=== PATIENT | male | born 1960 | race Caucasian/White ===

== ENCOUNTER 2016-12-12 22:03 | Emergency (ER) | payer MEDICARE, OTHER ==
[2016-12-12 22:14] LABS: Glucose,Whole Blood 175 mg/dL (75-99)
[2016-12-12 22:15] VITALS: RESP 18
--- NOTE | 2016-12-12 22:19 | ED ---
Recheck HPI - General Chief Complaint: Recheck/Abnormal Lab/Rx Stated Complaint: Diabetic Problems Time Seen by Provider: 12/12/16 22:05 Source: patient, RN notes reviewed Mode of arrival: ambulatory Limitations: no limitations - History of Present Illness Initial Comments: This is a 56-year-old male with a history of insulin-dependent diabetes who states for the past several days his blood sugars been very erratic sometimes in the 3 and 400 range sometimes down to 35. He states he has not changed his diet changes dosing he's had no fevers chills nausea vomiting sweats no cough no phlegm production no rhinorrhea no dysuria no polyuria. He's had a new prescription for insulin recently. - Related Data Home Medications Medication Instructions Recorded Confirmed Pravastatin Sodium [Pravachol] 20 mg PO DAILY 01/26/14 12/12/16 Insulin NPH Human Isophane 100 unit SQ QID 01/04/16 12/12/16 [NovoLIN N] Gabapentin [Neurontin] 100 mg PO TID 06/05/16 12/12/16 Hydrocodone/Acetaminophen 1 tab PO TID PRN 06/05/16 12/12/16 [Hydrocodone/Acetaminophen 10-325] Ondansetron [Zofran] 4 mg PO Q12HR PRN 06/05/16 12/12/16 traMADol-ACETAMINOP 37.5-325MG 1 tab PO TID PRN 06/05/16 12/12/16 [Ultracet] Previous Rx's Medication Instructions Recorded Hydrocodone/Acetaminophen [[place] 1 each PO Q6HR PRN #20 tab 06/05/16 5-325] Allergies Allergy/AdvReac Type Severity Reaction Status Date / Time No Known Allergies Allergy Verified 12/12/16 22:15 Review of Systems ROS Statement: Those systems with pertinent positive or pertinent negative responses have been documented in the HPI. ROS Other: All systems not noted in ROS Statement are negative. Past Medical History Past Medical History: Diabetes Mellitus Additional Past Medical History / Comment(s): neuropathy History of Any Multi-Drug Resistant Organisms: None Reported Past Surgical History: Appendectomy, Orthopedic Surgery Additional Past Surgical History / Comment(s): knee Past Psychological History: Anxiety, Depression Smoking Status: Former smoker Past Alcohol Use History: None Reported Past Drug Use History: Marijuana General Exam - General Exam Comments Initial Comments: This is a well-developed well-nourished awake alert oriented times 3 male Limitations: no limitations General appearance: alert, in no apparent distress Head exam: Present: atraumatic, normocephalic, normal inspection Eye exam: Present: normal appearance, PERRL, EOMI. Absent: scleral icterus, conjunctival injection, periorbital swelling ENT exam: Present: normal exam, mucous membranes moist Neck exam: Present: normal inspection. Absent: tenderness, meningismus, lymphadenopathy Respiratory exam: Present: normal lung sounds bilaterally. Absent: respiratory distress, wheezes, rales, rhonchi, stridor Cardiovascular Exam: Present: regular rate, normal rhythm, normal heart sounds. Absent: systolic murmur, diastolic murmur, rubs, gallop, clicks GI/Abdominal exam: Present: soft, normal bowel sounds. Absent: distended, tenderness, guarding, rebound, rigid Extremities exam: Present: normal inspection, full ROM, normal capillary refill. Absent: tenderness, pedal edema, joint swelling, calf tenderness Back exam: Present: normal inspection Neurological exam: Present: alert, oriented X3, CN II-XII intact Psychiatric exam: Present: normal affect, normal mood Skin exam: Present: warm, dry, intact, normal color. Absent: rash Course Vital Signs 12/12/16 22:13 Temperature 97.6 F Pulse Rate 77 Respiratory 18 Rate Blood Pressure 144/80 O2 Sat by Pulse 96 Oximetry Medical Decision Making - Medical Decision Making I did a long discussion with the patient family regarding findings. Patient's demonstrate some evidence of dehydration also of note more information obtained the patient did have decrease oral intake today and didn't work around the house which she normally doesn't do. This probably is contributing to the findings. - Lab Data Result diagrams: 12/12/16 22:30 12/12/16 22:30 Lab Results 12/12/16 12/12/16 12/12/16 Range/Units 22:12 22:30 22:30 WBC (3.8-10.6) k/uL RBC (4.30-5.90) m/uL Hgb (13.0-17.5) gm/dL Hct (39.0-53.0) % MCV (80.0-100.0) fL MCH (25.0-35.0) pg MCHC (31.0-37.0) g/dL RDW (11.5-15.5) % Plt Count (150-450) k/uL Neutrophils % % Lymphocytes % % Monocytes % % Eosinophils % % Basophils % % Neutrophils # (1.3-7.7) k/uL Lymphocytes # (1.0-4.8) k/uL Monocytes # (0-1.0) k/uL Eosinophils # (0-0.7) k/uL Basophils # (0-0.2) k/uL Sodium 139 (137-145) mmol/L Potassium 4.4 (3.5-5.1) mmol/L Chloride 101 (98-107) mmol/L Carbon Dioxide 27 (22-30) mmol/L Anion Gap 11 mmol/L BUN 16 (9-20) mg/dL Creatinine 0.70 (0.66-1.25) mg/dL Est GFR (MDRD) Af Amer >60 (>60 ml/min/1.73 sqM) Est GFR (MDRD) Non-Af >60 (>60 ml/min/1.73 sqM) Glucose 223 H (74-99) mg/dL POC Glucose (mg/dL) 175 H (75-99) mg/dL POC Glu Machine Erector ID Maria C Brown Calcium 9.6 (8.4-10.2) mg/dL Magnesium 2.0 (1.6-2.3) mg/dL Total Bilirubin 1.5 H (0.2-1.3) mg/dL AST 37 (17-59) U/L ALT 46 (21-72) U/L Alkaline Phosphatase 68 (38-126) U/L Total Creatine Kinase 262 H (55-170) U/L CK-MB (CK-2) 2.9 H* (0.0-2.4) ng/mL CK-MB (CK-2) Rel Index 1.1 Troponin I <0.012 (0.000-0.034) ng/mL Total Protein 7.3 (6.3-8.2) g/dL Albumin 4.7 (3.5-5.0) g/dL Amylase 76 (30-110) U/L Lipase 15 L (23-300) U/L Urine Color Urine Appearance (Clear) Urine pH (5.0-8.0) Ur Specific [place] (1.001-1.035) Urine Protein (Negative) Urine Glucose (UA) (Negative) Urine Ketones (Negative) Urine Blood (Negative) Urine Nitrite (Negative) Urine Bilirubin (Negative) Urine Urobilinogen (<2.0) mg/dL Ur Leukocyte Esterase (Negative) Acetone, Qual Negative (Negative) 12/12/16 12/12/16 Range/Units 22:30 22:30 WBC 7.5 (3.8-10.6) k/uL RBC 4.42 (4.30-5.90) m/uL Hgb 15.1 (13.0-17.5) gm/dL Hct 42.1 (39.0-53.0) % MCV 95.3 (80.0-100.0) fL MCH 34.1 (25.0-35.0) pg MCHC 35.8 (31.0-37.0) g/dL RDW 12.7 (11.5-15.5) % Plt Count 247 (150-450) k/uL Neutrophils % 79 % Lymphocytes % 13 % Monocytes % 6 % Eosinophils % 0 % Basophils % 0 % Neutrophils # 5.9 (1.3-7.7) k/uL Lymphocytes # 1.0 (1.0-4.8) k/uL Monocytes # 0.5 (0-1.0) k/uL Eosinophils # 0.0 (0-0.7) k/uL Basophils # 0.0 (0-0.2) k/uL Sodium (137-145) mmol/L Potassium (3.5-5.1) mmol/L Chloride (98-107) mmol/L Carbon Dioxide (22-30) mmol/L Anion Gap mmol/L BUN (9-20) mg/dL Creatinine (0.66-1.25) mg/dL Est GFR (MDRD) Af Amer (>60 ml/min/1.73 sqM) Est GFR (MDRD) Non-Af (>60 ml/min/1.73 sqM) Glucose (74-99) mg/dL POC Glucose (mg/dL) (75-99) mg/dL POC Glu Machine Erector ID Calcium (8.4-10.2) mg/dL Magnesium (1.6-2.3) mg/dL Total Bilirubin (0.2-1.3) mg/dL AST (17-59) U/L ALT (21-72) U/L Alkaline Phosphatase (38-126) U/L Total Creatine Kinase (55-170) U/L CK-MB (CK-2) (0.0-2.4) ng/mL CK-MB (CK-2) Rel Index Troponin I (0.000-0.034) ng/mL Total Protein (6.3-8.2) g/dL Albumin (3.5-5.0) g/dL Amylase (30-110) U/L Lipase (23-300) U/L Urine Color Yellow Urine Appearance Clear (Clear) Urine pH 5.5 (5.0-8.0) Ur Specific [place] 1.024 (1.001-1.035) Urine Protein Trace H (Negative) Urine Glucose (UA) 3+ H (Negative) Urine Ketones 3+ H (Negative) Urine Blood Negative (Negative) Urine Nitrite Negative (Negative) Urine Bilirubin Negative (Negative) Urine Urobilinogen 2.0 (<2.0) mg/dL Ur Leukocyte Esterase Negative (Negative) Acetone, Qual (Negative) - EKG Data -: EKG Interpreted by Id EKG shows normal: sinus rhythm, axis, intervals, QRS complexes, ST-T waves (EKG shows normal sinus rhythm of 73. We'll 180 QRS duration 86 daily since QTC of 42/442 this is a normal-appearing EKG. Some artifact is present) Rate: normal - Radiology Data Radiology results: report reviewed (I did review the x-rays and report no acute findings.), image reviewed Disposition Clinical Impression: Hyperglycemia, Dehydration Disposition: HOME SELF-CARE Condition: Good Instructions: Diabetic Hyperglycemia (ED) Referrals: Kriss Larson MD [Primary Care Provider] - 1-2 days
[2016-12-12 22:43] LABS: Basophils % (A) 0 %; CH 34.6; CHCM 36.4; Eosinophils % (A) 0 %; HCT 42.1 % (39.0-53.0); HGB 15.1 gm/dL (13.0-17.5); Luc # (Auto) 0.12; Luc % (Auto) 2; Lymphocytes % (A) 13 %; MCH 34.1 pg (25.0-35.0); MCHC 35.8 g/dL (31.0-37.0); MCV 95.3 fL (80.0-100.0); Mean Platelet Volume 7.8; Monocytes # (A) 0.5 k/uL (0-1.0); Monocytes % (A) 6 %; Neutrophils # (A) 5.9 k/uL (1.3-7.7); Neutrophils % (A) 79 %; RBC 4.42 m/uL (4.30-5.90); RDW 12.7 % (11.5-15.5); WBC 7.5 k/uL (3.8-10.6); WBC (Perox) 7.58
[2016-12-12 22:44] LABS: Appearance,Urine Clear (Clear); Bilirubin,Urine Negative (Negative); Glucose,Urine (UA) 3+ (Negative); Leukocyte Esterase,Urine Negative (Negative); Nitrite,Urine Negative (Negative); PH, Urine 5.5 (5.0-8.0); Protein,Urine Trace (Negative); Specific Gravity,Urine 1.024 (1.001-1.035); UA Billing (MACRO vs. MICRO) CHEM
[2016-12-12 22:56] LABS: ALT 46 U/L (21-72); AST 37 U/L (17-59); Alkaline Phosphatase 68 U/L (38-126); Amylase 76 U/L (30-110); Anion Gap 11 mmol/L; Blood Urea Nitrogen 16 mg/dL (9-20); Calcium 9.6 mg/dL (8.4-10.2); Carbon Dioxide 27 mmol/L (22-30); Chloride 101 mmol/L (98-107); Glucose 223 mg/dL (74-99); Ketones,Urine 3+ (Negative); Non-African American GFR(MDRD) >60 (>60 ml/min/1.73 sqM); Potassium 4.4 mmol/L (3.5-5.1); Sodium 139 mmol/L (137-145); Total Bilirubin 1.5 mg/dL (0.2-1.3); Total Protein 7.3 g/dL (6.3-8.2)
[2016-12-12 23:02] LABS: Creatine Kinase 262 U/L (55-170)
--- NOTE | 2016-12-12 23:08 | XR ---
EXAM: XR Chest, 2 Views. CLINICAL HISTORY: Reason: cough TECHNIQUE: Frontal and lateral views of the chest. COMPARISON: No relevant prior studies available. FINDINGS: Lungs: Unremarkable. No consolidation. Pleural spaces: Unremarkable. No pneumothorax. Heart: Unremarkable. No cardiomegaly. Mediastinum: Unremarkable. Bones: Unremarkable. No acute fracture. IMPRESSION: Normal chest.
[2016-12-12 23:15] LABS: Troponin I <0.012 ng/mL (0.000-0.034)
[2016-12-12 23:22] LABS: Creatine Kinase MB 2.9 ng/mL (0.0-2.4)
[2016-12-13] MEDS ORDERED: SODIUM CHLORIDE 0.9% 1,000 ML IV STA (00:01)
[2016-12-13 00:59] VITALS: BP 109/52; PULSE 66; TEMP 97.9
== END 2016-12-13 00:58 | disposition home or self-care (01) ==
LOC: EC 22:03
DX: E11.65 Type 2 diabetes mellitus with hyperglycemia (principal); E86.0 Dehydration; E11.40 Type 2 diabetes mellitus with diabetic neuropathy, unspecified; Z87.891 Personal history of nicotine dependence; Z79.4 Long term (current) use of insulin; Z79.899 Other long term (current) drug therapy
CPT/HCPCS: 36415; 71020; 80053; 81003; 82009; 82150; 82550; 82553; 83690; 83735; 84484; 85025; 93005; 99285

== ENCOUNTER 2018-05-03 11:36 | Emergency (ER) | payer MEDICARE, OTHER ==
[2018-05-03 11:47] VITALS: RESP 18
[2018-05-03 11:48] LABS: Glucose,Whole Blood 466 mg/dL (75-99)
[2018-05-03 13:51] LABS: Glucose,Whole Blood 462 mg/dL (75-99)
[2018-05-03] MEDS ORDERED: SODIUM CHLORIDE 0.9% 1,000 ML IV STA ×2 (14:17)
[2018-05-03] MEDS ORDERED: MORPHINE SULFATE 4 MG/ML SYRINGE IV STA (14:17)
[2018-05-03] MEDS ORDERED: KETOROLAC 30 MG/ML 1 ML VIAL IVP STA (14:17)
[2018-05-03] MEDS ORDERED: SODIUM CHLORIDE 0.9% 500 ML 500 ML IV STA (14:17)
--- NOTE | 2018-05-03 14:24 | ED ---
Back Pain HPI - General Chief Complaint: Recheck/Abnormal Lab/Rx Stated Complaint: back pain Time Seen by Provider: 05/03/18 13:34 Source: patient Limitations: no limitations - Related Data Home Medications Medication Instructions Recorded Confirmed Aspirin EC [Ecotrin Low Dose] 81 mg PO DAILY 05/03/18 05/03/18 HYDROcodone/APAP 10-325MG [[place] 1 tab PO QID PRN 05/03/18 05/03/18 10-325] Insulin NPH Human Isophane 5 - 15 unit SQ TID 05/03/18 05/03/18 [NovoLIN N] Lisinopril [Zestril] 2.5 mg PO DAILY 05/03/18 05/03/18 Allergies Allergy/AdvReac Type Severity Reaction Status Date / Time No Known Allergies Allergy Verified 05/03/18 13:57 Review of Systems ROS Statement: Those systems with pertinent positive or pertinent negative responses have been documented in the HPI. ROS Other: All systems not noted in ROS Statement are negative. Past Medical History Past Medical History: Diabetes Mellitus Additional Past Medical History / Comment(s): neuropathy History of Any Multi-Drug Resistant Organisms: None Reported Past Surgical History: Appendectomy, Orthopedic Surgery Additional Past Surgical History / Comment(s): knee Past Psychological History: Anxiety, Depression Smoking Status: Former smoker Past Alcohol Use History: None Reported Past Drug Use History: Marijuana General Exam - General Exam Comments Initial Comments: no bony tenderness LS spine, no neurological deficit Limitations: no limitations General appearance: alert, in no apparent distress Head exam: Present: atraumatic, normocephalic, normal inspection Eye exam: Present: normal appearance, PERRL, EOMI. Absent: scleral icterus, conjunctival injection, periorbital swelling ENT exam: Present: normal exam, mucous membranes moist Neck exam: Present: normal inspection. Absent: tenderness, meningismus, lymphadenopathy Respiratory exam: Present: normal lung sounds bilaterally. Absent: respiratory distress, wheezes, rales, rhonchi, stridor Cardiovascular Exam: Present: regular rate, normal rhythm, normal heart sounds. Absent: systolic murmur, diastolic murmur, rubs, gallop, clicks GI/Abdominal exam: Present: soft, normal bowel sounds. Absent: distended, tenderness, guarding, rebound, rigid Extremities exam: Present: normal inspection, full ROM, normal capillary refill. Absent: tenderness, pedal edema, joint swelling, calf tenderness Back exam: Present: normal inspection Neurological exam: Present: alert, oriented X3, CN II-XII intact Psychiatric exam: Present: normal affect, normal mood Skin exam: Present: warm, dry, intact, normal color. Absent: rash Course Vital Signs 05/03/18 05/03/18 05/03/18 11:40 15:10 15:11 Temperature 97.5 F L Pulse Rate 76 Respiratory 18 Rate Blood Pressure 135/80 124/73 111/75 O2 Sat by Pulse 100 100 99 Oximetry 05/03/18 05/03/18 05/03/18 15:12 15:13 15:14 Temperature Pulse Rate 65 Respiratory 18 Rate Blood Pressure 111/75 111/75 111/75 O2 Sat by Pulse 98 99 99 Oximetry - Reevaluation(s) Reevaluation #1: 05/03/18 15:32 Medical records thoroughly reviewed Reevaluation #2: 05/03/18 15:32 Patient significant pain control currently, blood sugar is significantly improved prior to discharge Reevaluation #3: 05/03/18 15:32 Patient is able to ambulate without difficulty and no neurological deficit Medical Decision Making - Medical Decision Making 57 male the ER for evaluation of acute on chronic low back pain, elevated blood sugar, patient blood sugars rapidly improved here in the emergency room, encouraged to furthermore tighten his diabetic diet control, patient will follow -up with primary care and pain control regarding his chronic back pain. - Lab Data Result diagrams: 05/03/18 14:42 05/03/18 14:42 Lab Results 05/03/18 05/03/18 05/03/18 Range/Units 11:46 13:50 14:42 WBC (3.8-10.6) k/uL RBC (4.30-5.90) m/uL Hgb (13.0-17.5) gm/dL Hct (39.0-53.0) % MCV (80.0-100.0) fL MCH (25.0-35.0) pg MCHC (31.0-37.0) g/dL RDW (11.5-15.5) % Plt Count (150-450) k/uL Neutrophils % % Lymphocytes % % Monocytes % % Eosinophils % % Basophils % % Neutrophils # (1.3-7.7) k/uL Lymphocytes # (1.0-4.8) k/uL Monocytes # (0-1.0) k/uL Eosinophils # (0-0.7) k/uL Basophils # (0-0.2) k/uL Sodium 135 L (137-145) mmol/L Potassium 5.3 H (3.5-5.1) mmol/L Chloride 97 L (98-107) mmol/L Carbon Dioxide 26 (22-30) mmol/L Anion Gap 12 mmol/L BUN 19 (9-20) mg/dL Creatinine 0.73 (0.66-1.25) mg/dL Est GFR (CKD-EPI)AfAm >90 (>60 ml/min/1.73 sqM) Est GFR (CKD-EPI)NonAf >90 (>60 ml/min/1.73 sqM) Glucose 464 H (74-99) mg/dL POC Glucose (mg/dL) 466 H 462 H (75-99) mg/dL POC Glu Therapeutic Strategy Lead ID Berny, Cherylson Garcia Kay Calcium 9.6 (8.4-10.2) mg/dL Total Bilirubin 1.9 H (0.2-1.3) mg/dL AST 37 (17-59) U/L ALT 47 (21-72) U/L Alkaline Phosphatase 145 H (38-126) U/L Total Protein 7.6 (6.3-8.2) g/dL Albumin 4.6 (3.5-5.0) g/dL Amylase 52 (30-110) U/L Lipase 30 (23-300) U/L Acetone, Qual Negative (Negative) 05/03/18 Range/Units 14:42 WBC 6.2 (3.8-10.6) k/uL RBC 4.63 (4.30-5.90) m/uL Hgb 15.8 (13.0-17.5) gm/dL Hct 46.0 (39.0-53.0) % MCV 99.3 (80.0-100.0) fL MCH 34.2 (25.0-35.0) pg MCHC 34.4 (31.0-37.0) g/dL RDW 12.8 (11.5-15.5) % Plt Count 233 (150-450) k/uL Neutrophils % 63 % Lymphocytes % 28 % Monocytes % 6 % Eosinophils % 1 % Basophils % 1 % Neutrophils # 3.9 (1.3-7.7) k/uL Lymphocytes # 1.7 (1.0-4.8) k/uL Monocytes # 0.3 (0-1.0) k/uL Eosinophils # 0.1 (0-0.7) k/uL Basophils # 0.0 (0-0.2) k/uL Sodium (137-145) mmol/L Potassium (3.5-5.1) mmol/L Chloride (98-107) mmol/L Carbon Dioxide (22-30) mmol/L Anion Gap mmol/L BUN (9-20) mg/dL Creatinine (0.66-1.25) mg/dL Est GFR (CKD-EPI)AfAm (>60 ml/min/1.73 sqM) Est GFR (CKD-EPI)NonAf (>60 ml/min/1.73 sqM) Glucose (74-99) mg/dL POC Glucose (mg/dL) (75-99) mg/dL POC Glu Therapeutic Strategy Lead ID Calcium (8.4-10.2) mg/dL Total Bilirubin (0.2-1.3) mg/dL AST (17-59) U/L ALT (21-72) U/L Alkaline Phosphatase (38-126) U/L Total Protein (6.3-8.2) g/dL Albumin (3.5-5.0) g/dL Amylase (30-110) U/L Lipase (23-300) U/L Acetone, Qual (Negative) - Radiology Data Radiology results: report reviewed (X-ray chest and pelvis lumbar sacral spine is negative for injury disease), image reviewed Disposition Clinical Impression: Back pain, Hyperglycemia Disposition: HOME SELF-CARE Condition: Good Instructions: Chronic Back Pain (ED), Acute Low Back Pain (ED), Diabetic Hyperglycemia (ED) Is patient prescribed a controlled substance at d/c from ED?: No Referrals: Kriss Larson MD [Primary Care Provider] - 1-2 days
[2018-05-03 15:05] LABS: Basophils % (A) 1 %; Eosinophils # (A) 0.1 k/uL (0-0.7); Eosinophils % (A) 1 %; HGB 15.8 gm/dL (13.0-17.5); Lymphocytes # (A) 1.7 k/uL (1.0-4.8); Lymphocytes % (A) 28 %; MCH 34.2 pg (25.0-35.0); MCHC 34.4 g/dL (31.0-37.0); MCV 99.3 fL (80.0-100.0); Mean Platelet Volume 7.7; Monocytes # (A) 0.3 k/uL (0-1.0); Monocytes % (A) 6 %; Neutrophils # (A) 3.9 k/uL (1.3-7.7); Neutrophils % (A) 63 %; Platelet Count 233 k/uL (150-450); RBC 4.63 m/uL (4.30-5.90); RDW 12.8 % (11.5-15.5); WBC 6.2 k/uL (3.8-10.6)
--- NOTE | 2018-05-03 15:13 | XR ---
EXAMINATION TYPE: XR lumbar spine 2 or 3V DATE OF EXAM: 05/03/2018 CLINICAL HISTORY: Chronic back pain TECHNIQUE: Frontal and lateral images of the lumbar spine are obtained. COMPARISON: None FINDINGS: There are 5 lumbar type vertebral bodies identified. Vertebral body heights are maintained of the lumbar spine. There is slight retrolisthesis of L2 on L3 and L3 on L4 with grade 1 anterolist hesis of L4 on L5. Multilevel malalignment is likely on degenerative basis with multilevel facet hype rtrophy. Small anterior osteophytes are seen at L5-S1 and to a lesser degree throughout the remainder the lumbar spine. The overlying soft tissue appears unremarkable. IMPRESSION: No acute fracture is seen in the lumbar spine. Multilevel malalignment is likely on the basis of degenerative change due to hypertrophic facet arthropathy.
--- NOTE | 2018-05-03 15:14 | XR ---
EXAMINATION TYPE: XR abdomen acute w cxr DATE OF EXAM: 05/03/2018 COMPARISON: NONE HISTORY: Chest pain and abdominal pain TECHNIQUE: Single view chest radiograph and 2 view abdominal radiographs are obtained. FINDINGS: Chest: No focal consolidation, pleural effusion or pneumothorax. Cardiomediastinal silhouette is with in normal limits. Osseous structures appear intact. ABDOMEN: Multiple phleboliths and atherosclerosis are seen within the left hemipelvis and inguinal re gions. Multilevel degenerative change of the lumbar spine is described on the lumbar radiographs of t he same date. There is mild bilateral femoral acetabular arthropathy. No dilated large or small bowel . IMPRESSION: Nonobstructive bowel gas pattern and no acute cardiopulmonary process.
[2018-05-03 15:18] LABS: ALT 47 U/L (21-72); AST 37 U/L (17-59); Albumin 4.6 g/dL (3.5-5.0); Alkaline Phosphatase 145 U/L (38-126); Amylase 52 U/L (30-110); Anion Gap 12 mmol/L; Blood Urea Nitrogen 19 mg/dL (9-20); Calcium 9.6 mg/dL (8.4-10.2); Carbon Dioxide 26 mmol/L (22-30); Chloride 97 mmol/L (98-107); Glucose 464 mg/dL (74-99); Lipase 30 U/L (23-300); Potassium 5.3 mmol/L (3.5-5.1); Sodium 135 mmol/L (137-145); Total Bilirubin 1.9 mg/dL (0.2-1.3); Total Protein 7.6 g/dL (6.3-8.2)
[2018-05-03] MEDS ORDERED: INSULIN REGULAR 100 UNIT/ML VIAL SQ ONE (15:30)
[2018-05-03] MEDS ORDERED: INSULIN REGULAR 100 UNIT/ML VIAL IV ONE (15:30)
[2018-05-03 16:04] VITALS: BP 133/75; PULSE 68; TEMP 97.6
== END 2018-05-03 16:04 | disposition home or self-care (01) ==
LOC: EC 11:36
DX: M54.9 Dorsalgia, unspecified (principal); E11.65 Type 2 diabetes mellitus with hyperglycemia; G89.29 Other chronic pain; E11.40 Type 2 diabetes mellitus with diabetic neuropathy, unspecified; Z79.4 Long term (current) use of insulin; Z79.82 Long term (current) use of aspirin; Z79.899 Other long term (current) drug therapy; Z87.891 Personal history of nicotine dependence
CPT/HCPCS: 36415; 80053; 82150; 82009; 83690; 85025; 74022; 72100; 99283; 96374; 96375; 96361 ×2; J2270; J1885

== ENCOUNTER 2019-10-02 | Emergency (ER) | payer OTHER, MEDICARE | END 2019-10-02 16:17 | disposition home or self-care (01) | CPT/HCPCS: 36415; 93005; 80053; 84484; 85025; 71046; 99285; 96374; J1885 ==

== ENCOUNTER 2020-03-27 18:56 | Emergency (ER) | payer OTHER, MEDICARE ==
[2020-03-27 19:09] VITALS: PULSE 74; RESP 20; TEMP 97.6
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
[2020-03-27 19:47] LABS: Basophils % (A) 1 %; Eosinophils # (A) 0.1 k/uL (0-0.7); Eosinophils % (A) 1 %; HCT 41.5 % (39.0-53.0); HGB 13.6 gm/dL (13.0-17.5); Lymphocytes % (A) 28 %; MCH 32.6 pg (25.0-35.0); MCHC 32.8 g/dL (31.0-37.0); MCV 99.3 fL (80.0-100.0); Mean Platelet Volume 7.7; Monocytes # (A) 0.4 k/uL (0-1.0); Monocytes % (A) 5 %; Neutrophils # (A) 4.5 k/uL (1.3-7.7); Neutrophils % (A) 63 %; Platelet Count 211 k/uL (150-450); RBC 4.18 m/uL (4.30-5.90); RDW 12.6 % (11.5-15.5); WBC 7.3 k/uL (3.8-10.6)
[2020-03-27 19:56] LABS: ALT 27 U/L (4-49); AST 31 U/L (17-59); African American GFR (CKD) >90 (>60 ml/min/1.73 sqM); Albumin 3.9 g/dL (3.5-5.0); Alcohol <10 mg/dL; Alkaline Phosphatase 89 U/L (38-126); Anion Gap 7 mmol/L; Blood Urea Nitrogen 12 mg/dL (9-20); Calcium 9.2 mg/dL (8.4-10.2); Carbon Dioxide 25 mmol/L (22-30); Chloride 102 mmol/L (98-107); Creatine Kinase 152 U/L (55-170); Glucose 186 mg/dL (74-99); Non-African American GFR(CKD) >90 (>60 ml/min/1.73 sqM); Potassium 3.7 mmol/L (3.5-5.1); Sodium 134 mmol/L (137-145); Total Bilirubin 0.7 mg/dL (0.2-1.3); Total Protein 6.1 g/dL (6.3-8.2)
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
[2020-03-27 20:05] LABS: INR 0.9 (<1.2); Partial Thromboplastin Time 24.8 sec (22.0-30.0); Prothrombin Time 9.9 sec (9.0-12.0)
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
[2020-03-27 20:52] VITALS: BP 131/76
[2020-03-27] MEDS ORDERED: KETOROLAC 15 MG/ML 1 ML VIAL IVP STA (21:00)
[2020-03-27 21:15] LABS: Appearance,Urine Clear (Clear); Bilirubin,Urine Negative (Negative); Blood,Urine Negative (Negative); Color,Urine Colorless; Glucose,Urine (UA) 1+ (Negative); Ketones,Urine Negative (Negative); Leukocyte Esterase,Urine Negative (Negative); Nitrite,Urine Negative (Negative); PH, Urine 6.5 (5.0-8.0); Protein,Urine Negative (Negative); Specific Gravity,Urine 1.005 (1.001-1.035); Urobilinogen,Urine <2.0 mg/dL (<2.0)
[2020-03-27 21:26] LABS: Amphetamine Screen,Urine Not Detected (NotDetected); Barbiturate Screen,Urine Not Detected (NotDetected); Benzodiazepines Screen,Urine Not Detected (NotDetected); Cocaine Screen,Urine Not Detected (NotDetected); Methadone Screen, Urine Not Detected (NotDetected); Opiate Screen,Urine Detected (NotDetected); Oxycodone Screen, Urine Not Detected (NotDetected); Phencyclidine Screen,Urine Not Detected (NotDetected); Tricyclic Antidepressant,Urine Not Detected (NotDetected); Urn Cannabinoid Scrn Detected (NotDetected)
== END 2020-03-27 21:31 | disposition home or self-care (01) ==
LOC: EC 18:56
DX: S63.502A Unspecified sprain of left wrist, initial encounter (principal); S60.512A Abrasion of left hand, initial encounter; S60.511A Abrasion of right hand, initial encounter; S50.812A Abrasion of left forearm, initial encounter; S50.811A Abrasion of right forearm, initial encounter; S80.812A Abrasion, left lower leg, initial encounter; E11.40 Type 2 diabetes mellitus with diabetic neuropathy, unspecified; F17.200 Nicotine dependence, unspecified, uncomplicated; Z79.82 Long term (current) use of aspirin; Z79.899 Other long term (current) drug therapy; Z79.4 Long term (current) use of insulin; Z98.890 Other specified postprocedural states; V23.4XXA Motorcycle driver injured in collision with car, pick-up truck or van in traffic accident, initial encounter; Y92.410 Unspecified street and highway as the place of occurrence of the external cause
CPT/HCPCS: 36415; 93005; 86900; 86901; 80053; 82550; 84484; 85025; 85610; 85730; 86850; 81003; 80306; 80320; 73110; 73130; 72170; 73590; 71045; 72125; 70450; 71260; 74177; 99285; 96374; J1885; Q9967

== ENCOUNTER 2020-10-17 15:47 | Emergency (ER) | payer MEDICARE, OTHER ==
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
[2020-10-17 17:40] LABS: Glucose,Whole Blood 268 mg/dL (75-99)
--- NOTE | 2020-10-17 18:10 | XR ---
PROCEDURE: XR hand complete RT - 3V DATE AND TIME: 10/17/2020 5:50 PM CLINICAL INDICATION: PHH; hand pain TECHNIQUE: Department protocol COMPARISON: 03/27/2020 FINDINGS: There is no fracture or malalignment. There are multifocal mild and moderate degenerative joint changes, but no bony erosions. Prominent multifocal arterial calcifications are redemonstrated, consistent with atherosclerosis. The soft tissues are otherwise unremarkable. IMPRESSION: 1. Widespread atherosclerotic intimal calcifications. 2. Degenerative joint changes.
[2020-10-17 22:56] VITALS: BP 130/55; PULSE 78; RESP 16; TEMP 98.3
== END 2020-10-17 21:37 | disposition home or self-care (01) ==
LOC: EC 15:47
DX: M79.641 Pain in right hand (principal); F41.9 Anxiety disorder, unspecified; F32.9 Major depressive disorder, single episode, unspecified; F12.90 Cannabis use, unspecified, uncomplicated; E11.40 Type 2 diabetes mellitus with diabetic neuropathy, unspecified
CPT/HCPCS: 36415; 99283

== ENCOUNTER → 2024-03-06 | Outpatient (CLI) | payer MEDICARE | END | disposition home or self-care (01) | LOC: LABPRL 08:50 | PROVIDERS: ATTEND Nurse Practitioner Family | CPT/HCPCS: 87070; 87075; 87205 ==

== ENCOUNTER 2024-03-13 21:14 | Emergency (ER) | payer MEDICARE, OTHER ==
[2024-03-13 21:32] VITALS: RESP 16; TEMP 98.1
[2024-03-13] MEDS: KETOROLAC 15 MG/ML 1 ML VIAL IM STA (23:11)
--- NOTE | 2024-03-14 00:07 | ED ---
General Adult HPI - General Chief complaint: Wound/Laceration Stated complaint: Left shoulder wound Time Seen by Provider: 03/13/24 22:16 Source: patient Mode of arrival: ambulatory Limitations: no limitations - History of Present Illness Initial comments: 63-year-old male presenting for evaluation of his chronic left shoulder wound. Patient had surgery back in July 2023. He has also had previous surgeries to the left shoulder prior to this. He has had a wound since July. He was at wound care today and he states that they were "flushing it out". He admits to pain with range of motion. No fevers. No joint swelling. No numbness tingling or weakness. - Related Data Home Medications Medication Instructions Recorded Confirmed Aspirin EC [Ecotrin Low Dose] 81 mg PO DAILY 05/03/18 10/02/19 HYDROcodone/APAP 10-325MG [Tamms 1 tab PO QID PRN 05/03/18 10/02/19 10-325] lisinopriL [Zestril] 2.5 mg PO DAILY 05/03/18 10/02/19 Insulin Regular, Human [NovoLIN R] See Protocol SQ AC-TID 10/02/19 10/02/19 Meloxicam 15 mg PO DAILY PRN 10/02/19 10/02/19 Pravastatin Sodium [Pravachol] 20 mg PO HS 10/02/19 10/02/19 Previous Rx's Medication Instructions Recorded Ibuprofen 800 mg PO Q6HR PRN #20 tablet 03/27/20 Orphenadrine [Norflex] 100 mg PO Q12H #7 tablet.er 03/27/20 Cephalexin [Keflex] 500 mg PO Q6HR 7 Days #28 cap 03/14/24 Sulfamethox-Tmp 800-160Mg [Bactrim 1 tab PO Q12HR 7 Days #14 tab 03/14/24 DS 800-160 mg] Allergies Allergy/AdvReac Type Severity Reaction Status Date / Time No Known Allergies Allergy Verified 03/13/24 21:32 Review of Systems ROS Statement: Those systems with pertinent positive or pertinent negative responses have been documented in the HPI. ROS Other: All systems not noted in ROS Statement are negative. Past Medical History Past Medical History: Diabetes Mellitus, Hypertension Additional Past Medical History / Comment(s): neuropathy History of Any Multi-Drug Resistant Organisms: None Reported Past Surgical History: Appendectomy, Orthopedic Surgery Additional Past Surgical History / Comment(s): knee, L shoulder 07/2023 Past Psychological History: Anxiety, Depression Smoking Status: Current some day smoker Past Alcohol Use History: None Reported Past Drug Use History: Marijuana General Exam Limitations: no limitations General appearance: alert, in no apparent distress Head exam: Present: atraumatic, normocephalic Eye exam: Present: normal appearance, EOMI Neck exam: Present: normal inspection. Absent: meningismus Respiratory exam: Absent: respiratory distress Cardiovascular Exam: Present: regular rate Left Shoulder Exam: Present: tenderness (Directly over his wound). Absent: swelling Vascular: Absent: vascular compromise Neurological exam: Present: alert, oriented X3 Psychiatric exam: Present: normal affect, normal mood Skin exam: Present: other (He does have a slight ulceration seen on the left shoulder) Course Vital Signs 03/13/24 03/14/24 21:26 01:10 Temperature 98.1 F Pulse Rate 84 72 Respiratory 16 16 Rate Blood Pressure 107/74 108/69 O2 Sat by Pulse 97 97 Oximetry Medical Decision Making - Medical Decision Making Was pt. sent in by a medical professional or institution (, PA, SPEECH PATHOLOGIST ASSISTANT, urgent care, hospital, or usp...) When possible be specific @ -No Did you speak to anyone other than the patient for history (EMS, parent, family, police, friend...)? What history was obtained from this source @ -No Did you review nursing and triage notes (agree or disagree)? Why? @ -I reviewed and agree with nursing and triage notes Were old charts reviewed (outside hosp., previous admission, EMS record, old EKG, old radiological studies, urgent care reports/EKG's, usp records)? Report findings @ -No old charts were reviewed Differential Diagnosis (chest pain, altered mental status, abdominal pain women, abdominal pain men, vaginal bleeding, weakness, fever, dyspnea, syncope, headache, dizziness, GI bleed, back pain, seizure, CVA, palpatations, mental health, musculoskeletal)? @ -Differential includes cellulitis, abscess, ulceration, this is not an all- inclusive EKG interpreted by me (3pts min.). @ -As above X-rays interpreted by me (1pt min.). @ -X-ray shows widening of the AC joint space measuring 1.4 cm correlate for history of David procedure. Subcutaneous air in the left shoulder, correlate for recent surgery. CT interpreted by me (1pt min.). @ -None done U/S interpreted by me (1pt. min.). @ -None done What testing was considered but not performed or refused? (CT, X-rays, U/S, labs)? Why? @ -None What meds were considered but not given or refused? Why? @ -None Did you discuss the management of the patient with other professionals (luis antonio martinez i.eSelena Dee, PA, SPEECH PATHOLOGIST ASSISTANT, lab, RT, psych nurse, social services assistant, accounting intern, teacher, airfield engineer officer, piano case maker)? Give summary @ -No Was smoking cessation discussed for >3mins.? @ -No Was critical care preformed (if so, how long)? @ -No Were there social determinants of health that impacted care today? How? (Homelessness, low income, unemployed, alcoholism, drug addiction, transportation, low edu. Level, literacy, decrease access to med. care, intermediate, rehab)? @ -No Was there de-escalation of care discussed even if they declined (Discuss DNR or withdrawal of care, Hospice)? DNR status @ -No What co-morbidities impacted this encounter? (DM, HTN, Smoking, COPD, CAD, Cancer, CVA, ARF, Chemo, Hep., AIDS, mental health diagnosis, sleep apnea, morbid obesity)? @ -None Was patient admitted / discharged? Hospital course, mention meds given and route, prescriptions, significant lab abnormalities, going to OR and other pertinent info. @ -63-year-old male presenting with chronic wound to the left shoulder. Patient has had recurrent issues with this since his surgery back in July. He saw wound care today. I removed a small piece of packing. Small amount of pus was expressed and culture was sent. There is no joint swelling or erythema, erythema is limited to the immediate area surrounding the wound. X-ray shows AC joint and subcu air that is consistent with the appearance of the wound. No evidence of septic arthritis. Patient will be treated with Keflex and Bactrim and instructed to follow-up with his credit specialist and orthopedist. Discharged home. Follow-up with PCP. Report back to ER with any new or worsening symptoms. Discussed return parameters and answered all questions. Patient conveyed verbal understanding and agreed to the plan. I discussed this case in detail with my attending Dr. Hunt Undiagnosed new problem with uncertain prognosis? @ -No Drug Therapy requiring intensive monitoring for toxicity (Heparin, Nitro, Insulin, Cardizem)? @ -No Were any procedures done? @ -No Diagnosis/symptom? @ -Cellulitis Acute, or Chronic, or Acute on Chronic? @ -Acute Uncomplicated (without systemic symptoms) or Complicated (systemic symptoms)? @ -Uncomplicated Side effects of treatment? @ -No Exacerbation, Progression, or Severe Exacerbation? @ -No Poses a threat to life or bodily function? How? (Chest pain, [place], [place], pneumonia, PE, COPD, DKA, ARF, appy, cholecystitis, CVA, Diverticulitis, Homicidal, Suicidal, threat to staff... and all critical care pts) @ -Low likelihood at this time Disposition Clinical Impression: Cellulitis Disposition: HOME SELF-CARE Condition: Good Instructions (If sedation given, give patient instructions): Cellulitis (ED) Additional Instructions: Follow-up with your PCP and credit specialist. Report back to ER with any new or worsening symptoms. Prescriptions: Sulfamethox-Tmp 800-160Mg [Bactrim DS 800-160 mg] 1 tab PO Q12HR 7 Days #14 tab Cephalexin [Keflex] 500 mg PO Q6HR 7 Days #28 cap Is patient prescribed a controlled substance at d/c from ED?: No Referrals: None,Stated [Primary Care Provider] - 1-2 days Esdras Sims MD [STAFF PHYSICIAN] - 1-2 days Time of Disposition: 00:42
--- NOTE | 2024-03-14 01:03 | XR ---
EXAM: XR Left Shoulder Complete, 2 or More Views CLINICAL HISTORY: ITS.REASON XR Reason: pain TECHNIQUE: Two or more views of the left shoulder. COMPARISON: No relevant prior studies available. FINDINGS: Bones/joints: Suture anchors in the humeral head. Widening of the acromioclavicular joint space, measuring 1.4 cm, correlate for history of David procedure. Subcutaneous air in the LEFT shoulder, correlate for recent surgery. No acute fracture. No dislocation. Soft tissues: See above. IMPRESSION: Widening of the acromioclavicular joint space, measuring 1.4 cm, correlate for history of David procedure. Subcutaneous air in the LEFT shoulder, correlate for recent surgery.
[2024-03-14 01:17] VITALS: BP 108/69; PULSE 72
== END 2024-03-14 01:10 | disposition home or self-care (01) ==
LOC: EC 21:14
CPT/HCPCS: 87070; 87205; 96372; 99283

== ENCOUNTER 2024-09-11 06:56 | Emergency (ER) | payer MEDICARE ==
[2024-09-11 07:05] VITALS: TEMP 97.3
[2024-09-11 07:34] LABS: Glucose,Whole Blood 194 mg/dL (70-110)
--- NOTE | 2024-09-11 07:39 | ED ---
Recheck HPI - General Chief Complaint: Recheck/Abnormal Lab/Rx Stated Complaint: Wrong Meds Time Seen by Provider: 09/11/24 07:34 Source: patient, RN notes reviewed Mode of arrival: wheelchair Limitations: no limitations - History of Present Illness Initial Comments: Patient is a 64-year-old male presented to the ER as he dosed morning insulin incorrectly. Patient reports at 6:45 AM he accidentally injected himself with 30 to 32 units of NovoLog as it was dark and he could not see the vial. Patient states he typically takes [employer] daily at that time. Patient states he immediately reported to the emergency department after realizing he injected himself with NovoLog. He states he rarly uses Novolog he estimates within a 3 day timeframe he uses about 2-4 units total. HE did not eat this morning. Patient denies any current complaints. Blood sugar upon arrival 234. - Related Data Home Medications Medication Instructions Recorded Confirmed lisinopriL [Zestril] 2.5 mg PO HS 05/03/18 09/11/24 Atorvastatin [Lipitor] 40 mg PO HS 09/11/24 09/11/24 INSULIN ASPART (NovoLOG) [NovoLOG See Protocol SQ AC-TID 09/11/24 09/11/24 (formulary)] Insulin Degludec [Tresiba] 32 units SQ DAILY 09/11/24 09/11/24 oxyCODONE-APAP 10-325MG [Percocet 1 tab PO TID 09/11/24 09/11/24 10-325 mg] Allergies Allergy/AdvReac Type Severity Reaction Status Date / Time No Known Allergies Allergy Verified 09/11/24 09:26 Review of Systems ROS Statement: Those systems with pertinent positive or pertinent negative responses have been documented in the HPI. ROS Other: All systems not noted in ROS Statement are negative. Past Medical History Past Medical History: Diabetes Mellitus, Hypertension Additional Past Medical History / Comment(s): neuropathy History of Any Multi-Drug Resistant Organisms: None Reported Past Surgical History: Appendectomy, Orthopedic Surgery Additional Past Surgical History / Comment(s): knee, L shoulder 07/2023 Past Psychological History: Anxiety, Depression Smoking Status: Current some day smoker Past Alcohol Use History: None Reported Past Drug Use History: Marijuana General Exam Limitations: no limitations General appearance: alert, in no apparent distress Course Vital Signs 09/11/24 09/11/24 07:02 13:20 Temperature 97.3 F L Pulse Rate 80 84 Respiratory 18 20 Rate Blood Pressure 112/74 121/72 O2 Sat by Pulse 98 99 Oximetry - Reevaluation(s) Reevaluation #1: 09/11/24 09:18 Patient reevaluated. No acute complaints. Blood sugar 92. No signs of acute distress. 09/11/24 10:48 Patient reevaluated. No acute complaints. No signs of acute distress. Blood sugar 94. 09/11/24 12:03 Patient reevaluated. No signs of acute distress or acute complaints at this time. Blood sugar 55. I encourage patient to continue drinking orange juice. Medical Decision Making - Medical Decision Making Was pt. sent in by a medical professional or institution (, PA, HOT STRIP MILL SUPERVISOR, urgent care, hospital, or [facility]...) When possible be specific @ -No Did you speak to anyone other than the patient for history (EMS, parent, family, police, friend...)? What history was obtained from this source @ -No Did you review nursing and triage notes (agree or disagree)? Why? @ -I reviewed and agree with nursing and triage notes Were old charts reviewed (outside hosp., previous admission, EMS record, old EKG, old radiological studies, urgent care reports/EKG's, [facility] records)? Report findings @ -No old charts were reviewed Differential Diagnosis (chest pain, altered mental status, abdominal pain women, abdominal pain men, vaginal bleeding, weakness, fever, dyspnea, syncope, headache, dizziness, GI bleed, back pain, seizure, CVA, palpatations, mental health, musculoskeletal)? @ -Hyperglycemia, hypoglycemia, DKA, HHS...this list is not meant to be all inclusive EKG interpreted by me (3pts min.). @ -None done X-rays interpreted by me (1pt min.). @ -None done CT interpreted by me (1pt min.). @ -None done U/S interpreted by me (1pt. min.). @ -None done What testing was considered but not performed or refused? (CT, X-rays, U/S, labs)? Why? @ -None What meds were considered but not given or refused? Why? @ -None Did you discuss the management of the patient with other professionals (professionals i.e. , PA, HOT STRIP MILL SUPERVISOR, lab, RT, psych nurse, social and political studies professor, family lawyer, teacher, fire officer, geriatric case manager)? Give summary @ -No Was smoking cessation discussed for >3mins.? @ -No Was critical care preformed (if so, how long)? @ -No Were there social determinants of health that impacted care today? How? (Homelessness, low income, unemployed, alcoholism, drug addiction, transportation, low edu. Level, literacy, decrease access to med. care, [facility], rehab)? @ -No Was there de-escalation of care discussed even if they declined (Discuss DNR or withdrawal of care, Hospice)? DNR status @ -No What co-morbidities impacted this encounter? (DM, HTN, Smoking, COPD, CAD, Cancer, CVA, ARF, Chemo, Hep., AIDS, mental health diagnosis, sleep apnea, morbid obesity)? @ -Diabetes mellitus Was patient admitted / discharged? Hospital course, mention meds given and route, prescriptions, significant lab abnormalities, going to OR and other pertinent info. @ -Discharge. 64-year-old male presented to the ER for accidental insulin overdose. Vitals within appropriate limits. Upon arrival patient with a blood sugar of 234. Patient has no acute complaints. Laboratory studies unremarkable. Patient's glucose was monitored in the ER every 30 minutes for approximately 6 hours after Novolog injection. Patient's glucose remained stable on oral intake with orange juice, sandwiches, man crackers and peanut butter. Patient did become hypoglycemic lowest at 55 which improved after more oral intake. Patient reevaluated numerous times in the ER without any acute complaints. Discharge blood sugar 150. I instructed patient to check blood sugars the remainder of the day every couple of hours. I also advised against any insulin use today and to resume normal medication regimen tomorrow. Strict return parameters discussed. Patient discharged in stable condition with follow-up to PCP. Patient verbally expressed understanding agreement with care plan. Case discussed with ED attending, Dr. Amaya. Undiagnosed new problem with uncertain prognosis? @ -No Drug Therapy requiring intensive monitoring for toxicity (Heparin, Nitro, Insulin, Cardizem)? @ -No Were any procedures done? @ -No Diagnosis/symptom? @ -Accidental insulin overdose/hypoglycemia Acute, or Chronic, or Acute on Chronic? @ -Acute Uncomplicated (without systemic symptoms) or Complicated (systemic symptoms)? @ -Uncomplicated Side effects of treatment? @ -No Exacerbation, Progression, or Severe Exacerbation? @ -No Poses a threat to life or bodily function? How? (Chest pain, [place], [place], pneumonia, PE, COPD, DKA, ARF, appy, cholecystitis, CVA, Diverticulitis, Homicidal, Suicidal, threat to staff... and all critical care pts) @ -Yes, hypoglycemia can be life-threatening. - Lab Data Result diagrams: 09/11/24 07:40 09/11/24 07:40 Lab Results 09/11/24 09/11/24 09/11/24 Range/Units 07:33 07:40 07:40 WBC 5.8 (3.8-10.6) k/uL RBC 4.50 (4.30-5.90) m/uL Hgb 14.9 (13.0-17.5) gm/dL Hct 43.7 (39.0-53.0) % MCV 97.1 (80.0-100.0) fL MCH 33.2 (25.0-35.0) pg MCHC 34.2 (31.0-37.0) g/dL RDW 12.5 (11.5-15.5) % Plt Count 216 (150-450) k/uL MPV 7.8 Neutrophils % 54 % Lymphocytes % 37 % Monocytes % 5 % Eosinophils % 2 % Basophils % 1 % Neutrophils # 3.1 (1.3-7.7) k/uL Lymphocytes # 2.2 (1.0-4.8) k/uL Monocytes # 0.3 (0-1.0) k/uL Eosinophils # 0.1 (0-0.7) k/uL Basophils # 0.0 (0-0.2) k/uL Sodium 138 (137-145) mmol/L Potassium 3.9 (3.5-5.1) mmol/L Chloride 103 (98-107) mmol/L Carbon Dioxide 29 (22-30) mmol/L Anion Gap 6 mmol/L BUN 14 (9-20) mg/dL Creatinine 0.66 (0.66-1.25) mg/dL Est GFR (CKD-EPI)AfAm >90 (>60 ml/min/1.73 sqM) Est GFR (CKD-EPI)NonAf >90 (>60 ml/min/1.73 sqM) Glucose 142 H (74-99) mg/dL POC Glucose (mg/dL) 194 H (70-110) mg/dL POC Glu Vice President Of Talent Acquisition ID Yadira Alfred Calcium 9.5 (8.4-10.2) mg/dL Total Bilirubin 1.1 (0.2-1.3) mg/dL AST 38 (17-59) U/L ALT 54 H (4-49) U/L Alkaline Phosphatase 89 (38-126) U/L Total Protein 6.6 (6.3-8.2) g/dL Albumin 4.2 (3.5-5.0) g/dL 09/11/24 09/11/24 09/11/24 Range/Units 08:02 08:29 08:57 WBC (3.8-10.6) k/uL RBC (4.30-5.90) m/uL Hgb (13.0-17.5) gm/dL Hct (39.0-53.0) % MCV (80.0-100.0) fL MCH (25.0-35.0) pg MCHC (31.0-37.0) g/dL RDW (11.5-15.5) % Plt Count (150-450) k/uL MPV Neutrophils % % Lymphocytes % % Monocytes % % Eosinophils % % Basophils % % Neutrophils # (1.3-7.7) k/uL Lymphocytes # (1.0-4.8) k/uL Monocytes # (0-1.0) k/uL Eosinophils # (0-0.7) k/uL Basophils # (0-0.2) k/uL Sodium (137-145) mmol/L Potassium (3.5-5.1) mmol/L Chloride (98-107) mmol/L Carbon Dioxide (22-30) mmol/L Anion Gap mmol/L BUN (9-20) mg/dL Creatinine (0.66-1.25) mg/dL Est GFR (CKD-EPI)AfAm (>60 ml/min/1.73 sqM) Est GFR (CKD-EPI)NonAf (>60 ml/min/1.73 sqM) Glucose (74-99) mg/dL POC Glucose (mg/dL) 170 H 108 87 (70-110) mg/dL POC Glu Vice President Of Talent Acquisition ID SHILOH Kirkpatrick Belval Aubrie Calcium (8.4-10.2) mg/dL Total Bilirubin (0.2-1.3) mg/dL AST (17-59) U/L ALT (4-49) U/L Alkaline Phosphatase (38-126) U/L Total Protein (6.3-8.2) g/dL Albumin (3.5-5.0) g/dL 09/11/24 09/11/24 09/11/24 Range/Units 09:04 09:15 09:40 WBC (3.8-10.6) k/uL RBC (4.30-5.90) m/uL Hgb (13.0-17.5) gm/dL Hct (39.0-53.0) % MCV (80.0-100.0) fL MCH (25.0-35.0) pg MCHC (31.0-37.0) g/dL RDW (11.5-15.5) % Plt Count (150-450) k/uL MPV Neutrophils % % Lymphocytes % % Monocytes % % Eosinophils % % Basophils % % Neutrophils # (1.3-7.7) k/uL Lymphocytes # (1.0-4.8) k/uL Monocytes # (0-1.0) k/uL Eosinophils # (0-0.7) k/uL Basophils # (0-0.2) k/uL Sodium (137-145) mmol/L Potassium (3.5-5.1) mmol/L Chloride (98-107) mmol/L Carbon Dioxide (22-30) mmol/L Anion Gap mmol/L BUN (9-20) mg/dL Creatinine (0.66-1.25) mg/dL Est GFR (CKD-EPI)AfAm (>60 ml/min/1.73 sqM) Est GFR (CKD-EPI)NonAf (>60 ml/min/1.73 sqM) Glucose (74-99) mg/dL POC Glucose (mg/dL) 85 92 78 (70-110) mg/dL POC Glu Vice President Of Talent Acquisition ID Danielito Buchanan Belval Aubrie Belval Aubrie Calcium (8.4-10.2) mg/dL Total Bilirubin (0.2-1.3) mg/dL AST (17-59) U/L ALT (4-49) U/L Alkaline Phosphatase (38-126) U/L Total Protein (6.3-8.2) g/dL Albumin (3.5-5.0) g/dL 09/11/24 09/11/24 09/11/24 Range/Units 10:09 10:35 11:35 WBC (3.8-10.6) k/uL RBC (4.30-5.90) m/uL Hgb (13.0-17.5) gm/dL Hct (39.0-53.0) % MCV (80.0-100.0) fL MCH (25.0-35.0) pg MCHC (31.0-37.0) g/dL RDW (11.5-15.5) % Plt Count (150-450) k/uL MPV Neutrophils % % Lymphocytes % % Monocytes % % Eosinophils % % Basophils % % Neutrophils # (1.3-7.7) k/uL Lymphocytes # (1.0-4.8) k/uL Monocytes # (0-1.0) k/uL Eosinophils # (0-0.7) k/uL Basophils # (0-0.2) k/uL Sodium (137-145) mmol/L Potassium (3.5-5.1) mmol/L Chloride (98-107) mmol/L Carbon Dioxide (22-30) mmol/L Anion Gap mmol/L BUN (9-20) mg/dL Creatinine (0.66-1.25) mg/dL Est GFR (CKD-EPI)AfAm (>60 ml/min/1.73 sqM) Est GFR (CKD-EPI)NonAf (>60 ml/min/1.73 sqM) Glucose (74-99) mg/dL POC Glucose (mg/dL) 101 94 55 L (70-110) mg/dL POC Glu Vice President Of Talent Acquisition ID Belval Aubrie Belval Aubrie Belval Aubrie Calcium (8.4-10.2) mg/dL Total Bilirubin (0.2-1.3) mg/dL AST (17-59) U/L ALT (4-49) U/L Alkaline Phosphatase (38-126) U/L Total Protein (6.3-8.2) g/dL Albumin (3.5-5.0) g/dL 09/11/24 09/11/24 Range/Units 12:12 12:50 WBC (3.8-10.6) k/uL RBC (4.30-5.90) m/uL Hgb (13.0-17.5) gm/dL Hct (39.0-53.0) % MCV (80.0-100.0) fL MCH (25.0-35.0) pg MCHC (31.0-37.0) g/dL RDW (11.5-15.5) % Plt Count (150-450) k/uL MPV Neutrophils % % Lymphocytes % % Monocytes % % Eosinophils % % Basophils % % Neutrophils # (1.3-7.7) k/uL Lymphocytes # (1.0-4.8) k/uL Monocytes # (0-1.0) k/uL Eosinophils # (0-0.7) k/uL Basophils # (0-0.2) k/uL Sodium (137-145) mmol/L Potassium (3.5-5.1) mmol/L Chloride (98-107) mmol/L Carbon Dioxide (22-30) mmol/L Anion Gap mmol/L BUN (9-20) mg/dL Creatinine (0.66-1.25) mg/dL Est GFR (CKD-EPI)AfAm (>60 ml/min/1.73 sqM) Est GFR (CKD-EPI)NonAf (>60 ml/min/1.73 sqM) Glucose (74-99) mg/dL POC Glucose (mg/dL) 65 L 150 H (70-110) mg/dL POC Glu Vice President Of Talent Acquisition ID [facility] Aubrie Calcium (8.4-10.2) mg/dL Total Bilirubin (0.2-1.3) mg/dL AST (17-59) U/L ALT (4-49) U/L Alkaline Phosphatase (38-126) U/L Total Protein (6.3-8.2) g/dL Albumin (3.5-5.0) g/dL Disposition Clinical Impression: Hypoglycemia, Accidental overdose of insulin Disposition: HOME SELF-CARE Condition: Stable Instructions (If sedation given, give patient instructions): Hypoglycemia in a Person with Diabetes (ED), What to Do if Your Blood Sugar is Low (ED) Additional Instructions: Do not take any more insulin tonight. Monitor sugars closely over the next 24 hours. I recommend checking your sugar every 2 or 3 hours. If your sugar is below 70, consume food or sugary foods. Follow-up with PCP in the next 1 to 2 days. Return to the ER for any new or worsening concerns. Is patient prescribed a controlled substance at d/c from ED?: No Referrals: None,Stated [Primary Care Provider] - 1-2 days Forms: Area PCPs Time of Disposition: 13:10
[2024-09-11 07:50] LABS: Basophils % (A) 1 %; Eosinophils # (A) 0.1 k/uL (0-0.7); Eosinophils % (A) 2 %; HCT 43.7 % (39.0-53.0); HGB 14.9 gm/dL (13.0-17.5); Lymphocytes # (A) 2.2 k/uL (1.0-4.8); Lymphocytes % (A) 37 %; MCH 33.2 pg (25.0-35.0); MCHC 34.2 g/dL (31.0-37.0); MCV 97.1 fL (80.0-100.0); Mean Platelet Volume 7.8; Monocytes # (A) 0.3 k/uL (0-1.0); Monocytes % (A) 5 %; Neutrophils # (A) 3.1 k/uL (1.3-7.7); Neutrophils % (A) 54 %; Platelet Count 216 k/uL (150-450); RDW 12.5 % (11.5-15.5); WBC 5.8 k/uL (3.8-10.6)
[2024-09-11 08:04] LABS: Glucose,Whole Blood 170 mg/dL (70-110)
[2024-09-11 08:07] LABS: ALT 54 U/L (4-49); AST 38 U/L (17-59); African American GFR (CKD) >90 (>60 ml/min/1.73 sqM); Albumin 4.2 g/dL (3.5-5.0); Alkaline Phosphatase 89 U/L (38-126); Anion Gap 6 mmol/L; Blood Urea Nitrogen 14 mg/dL (9-20); Calcium 9.5 mg/dL (8.4-10.2); Carbon Dioxide 29 mmol/L (22-30); Chloride 103 mmol/L (98-107); Glucose 142 mg/dL (74-99); Non-African American GFR(CKD) >90 (>60 ml/min/1.73 sqM); Potassium 3.9 mmol/L (3.5-5.1); Sodium 138 mmol/L (137-145); Total Bilirubin 1.1 mg/dL (0.2-1.3); Total Protein 6.6 g/dL (6.3-8.2)
[2024-09-11 08:31] LABS: Glucose,Whole Blood 108 mg/dL (70-110)
[2024-09-11 08:58] LABS: Glucose,Whole Blood 87 mg/dL (70-110)
[2024-09-11 09:05] LABS: Glucose,Whole Blood 85 mg/dL (70-110)
[2024-09-11 09:17] LABS: Glucose,Whole Blood 92 mg/dL (70-110)
[2024-09-11 09:43] LABS: Glucose,Whole Blood 78 mg/dL (70-110)
[2024-09-11 10:10] LABS: Glucose,Whole Blood 101 mg/dL (70-110)
[2024-09-11 10:35] LABS: Glucose,Whole Blood 94 mg/dL (70-110)
[2024-09-11 11:36] LABS: Glucose,Whole Blood 55 mg/dL (70-110)
[2024-09-11 12:13] LABS: Glucose,Whole Blood 65 mg/dL (70-110)
[2024-09-11 12:51] LABS: Glucose,Whole Blood 150 mg/dL (70-110)
[2024-09-11 13:21] VITALS: BP 121/72; PULSE 84; RESP 20
[2024-09-12 20:46] LABS: Glucose,Whole Blood 234 mg/dL (70-110)
== END 2024-09-11 13:21 | disposition home or self-care (01) ==
LOC: EC 06:56
DX: T38.3X1A Poisoning by insulin and oral hypoglycemic [antidiabetic] drugs, accidental (unintentional), initial encounter (principal); E11.649 Type 2 diabetes mellitus with hypoglycemia without coma; Z79.4 Long term (current) use of insulin; F17.200 Nicotine dependence, unspecified, uncomplicated
CPT/HCPCS: 36415; 80053; 85025; 99283